=== PATIENT | female | born 1980 | race African-American/Black ===

== ENCOUNTER 2017-06-01 18:13 | Emergency (ER) | payer OTHER ==
[2017-06-01 18:34] VITALS: BP 150/81; PULSE 82; TEMP 98.6; BMI 39.9
[2017-06-01] MEDS ORDERED: KETOROLAC TROMETHAMINE 60 MG/2 ML VIAL IM ONE (20:19)
[2017-06-01] MEDS ORDERED: KETOROLAC TROMETHAMINE 60 MG/2 ML VIAL ONE (20:21)
--- NOTE | 2017-06-01 20:27 | PDOC ---
History of Present Illness - General Chief Complaint: Pain, Acute Stated Complaint: PAIN RT ARM Time Seen by Provider: 06/01/17 19:12 - History of Present Illness Initial Comments: 06/01/17 20:23 CHIEF COMPLAINT: right arm pain HISTORY OF PRESENT ILLNESS: 37 yo F with hx of osteoarthritis presents to [facility] with pain to right arm "after sleeping on it funny." No recent travel or sick contacts. PAST MEDICAL HISTORY: Denies past medical history FAMILY HISTORY: Denies SOCIAL HISTORY: Denies tobacco, alcohol, illicit drug use. SURGICAL HISTORY: Denies ALLERGIES: No known drug allergies REVIEW OF SYSTEMS General/Constitutional: Denies fever or chills. Denies weakness, weight change. HEENT: Denies change in vision. Denies ear pain or discharge. Denies sore throat. Cardiovascular: Denies chest pain or shortness of breath. Respiratory: Denies cough, wheezing, or hemoptysis. Gastrointestinal: Denies nausea, vomiting, diarrhea or constipation. Denies rectal bleeding. Genitourinary: Denies dysuria, frequency, or change in urination. Musculoskeletal: R arm pain. Denies neck or back pain. PHYSICAL EXAM General Appearance: Well-appearing, appropriately dressed. No apparent distress. HEENT: EOMI, PERRLA. No conjunctival pallor. No photophobia, scleral icterus. Respiratory/Chest: Lungs CTAB. Cardiovascular: RRR. S1, S2. Musculoskeletal/Extremities: Normal inspection. FROM of all extremities, normal capillary refill. No tenderness to extremities, pedal edema, swelling, erythema or deformity. Integumentary: Appropriate color, dry, warm. 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 Fully oriented, alert. Appropriate mood/affect. Motor strength 5/5. No appreciable EOM palsy, facial droop or sensory deficit. Past History - Past Medical History Allergies/Adverse Reactions: Allergies Allergy/AdvReac Type Severity Reaction Status Date / Time Penicillins Allergy Verified 06/01/17 18:18 sulfamethoxazole Allergy Verified 06/01/17 18:18 [From Bactrim] trimethoprim [From Bactrim] Allergy Verified 06/01/17 18:18 Home Medications: Ambulatory Orders Carvedilol [Coreg -] 12.5 mg PO BID 06/01/17 Furosemide [Lasix] 20 mg PO ASDIR 06/01/17 Ibuprofen 600 mg PO TID PRN #30 tablet 06/01/17 Levothyroxine [Synthroid -] 0 mg PO ASDIR 06/01/17 Lisinopril 0 mg PO ASDIR 06/01/17 Asthma: No Cancer: No Cardiac Disorders: No (cardio myopathy) Diabetes: No HTN: No Seizures: No Thyroid Disease: Yes (hypo) Other medical history: osteroarthritis - Surgical History Abdominal Surgery: Yes (UMBILICAL HERNIA REPAIR) - Reproductive History (#): 7 Para: 2 Therapeutic (s) & number: Yes (2) Spontaneous : 2 - Suicide/Smoking/Psychosocial Hx Smoking Status: Yes Smoking History: Never smoked Have you smoked in the past 12 months: Yes Number of Cigarettes Smoked Daily: 8 Information on smoking cessation initiated: No Hx Alcohol Use: No Drug/Substance Use Hx: No Substance Use Type: None Hx Substance Use Treatment: No *Physical Exam - Vital Signs Last Vital Signs Temp Pulse Resp BP Pulse Ox 98.6 F 82 19 150/81 99 06/01/17 18:16 06/01/17 18:16 06/01/17 18:16 06/01/17 18:16 06/01/17 18:16 Medical Decision Making - Medical Decision Making Exam unremarkable. X-rays negative. Pain control with NSAIDS. Follow up with ortho, PCP. *DC/Admit/Observation/Transfer Diagnosis at time of Disposition: Wrist pain, acute Qualifiers: Laterality: right Qualified Code(s): M25.531 - Pain in right wrist - Discharge Dispostion Disposition: HOME Condition at time of disposition: Stable Admit: No - Prescriptions Prescriptions: Ibuprofen 600 mg PO TID PRN #30 tablet PRN Reason: Pain - Referrals Referrals: Champ Cortes MD [Primary Care Provider] - - Patient Instructions Printed Discharge Instructions: DI for Wrist Pain Additional Instructions: Please take medications as prescribed. Follow up with your primary care doctor for further management of your osteoarthritis. You can also follow up with an orthopedist to get a possible MRI and/or physical therapy of your wrist. If you develop any loss of sensation to your fingers, decreased temperature or change in color to your fingers or hands, or any new or worsening symptoms, please return to the ER. - Post Discharge Activity
== END 2017-06-01 21:16 | disposition home or self-care (01) ==
LOC: JERFT 18:13
PROC: 3E0233Z Introduction of Anti-inflammatory into Muscle, Percutaneous Approach (ICD-10-PCS; principal; 2017-06-01)
DX: M25.531 Pain in right wrist (principal); E03.9 Hypothyroidism, unspecified; I42.9 Cardiomyopathy, unspecified
CPT/HCPCS: 73090-TC-RT; 73110-TC-RT; 73130-TC-RT; 96372; 99281-25

== ENCOUNTER 2017-07-27 09:10 | Observation (INO) | payer OTHER ==
--- NOTE | 2017-07-27 10:10 | PDOC ---
History of Present Illness - General Chief Complaint: Back Pain Stated Complaint: BACK PAIN Time Seen by Provider: 07/27/17 09:31 History Source: Patient Exam Limitations: No Limitations - History of Present Illness Initial Comments: This is a 37 YOF with h/o chronic back and neck pain d/t DJD and osteoarthritis , and HTN, who was BIBA for 06/06 constant low back pain radiating up to the thoracic back on both sides of the spine and down the back of both legs, worsened by bending/twisting/movement/repositioning, onset last night, and worsening since that time. It feels like a muscle spasm combined with sharp nerve pain and has caused her difficulty walking d/t the pain and also a feeling that her knees are buckling beneath her. She tried Rx diclofenac cream without relief this morning but no other medications. She has had chronic back pain exacerbations the same as this in the past but the most recent was more than 2 years ago for which she was seen by her PCP, had an MRI of the spine, and did several sessions of PT. Past History - Past Medical History Allergies/Adverse Reactions: Allergies Allergy/AdvReac Type Severity Reaction Status Date / Time Penicillins Allergy Verified 07/27/17 09:41 sulfamethoxazole Allergy Verified 07/27/17 09:41 [From Bactrim] trimethoprim [From Bactrim] Allergy Verified 07/27/17 09:41 Home Medications: Ambulatory Orders Carvedilol [Coreg -] 6.25 mg PO BID 06/01/17 Furosemide [Lasix] 40 mg PO ASDIR 06/01/17 Ibuprofen 600 mg PO TID PRN #30 tablet 06/01/17 Levothyroxine [Synthroid -] 52 mg PO DAILY 06/01/17 Lisinopril 5 mg PO DAILY 06/01/17 Asthma: No Cancer: No Cardiac Disorders: Yes (cardiomypothy) COPD: No Diabetes: No HTN: Yes Seizures: Yes (hypo) Thyroid Disease: No - Surgical History Abdominal Surgery: Yes (UMBILICAL HERNIA REPAIR) - Reproductive History (#): 7 Para: 2 Therapeutic (s) & number: Yes (2) Spontaneous : 2 - Suicide/Smoking/Psychosocial Hx Smoking Status: Yes Smoking History: Current every day smoker Have you smoked in the past 12 months: Yes Number of Cigarettes Smoked Daily: 3 Information on smoking cessation initiated: No Hx Alcohol Use: No Drug/Substance Use Hx: No Substance Use Type: None Hx Substance Use Treatment: No Review of Systems - Review of Systems Constitutional: No: Chills, Fever, Unexplained wgt Loss HEENTM: No: Nose Congestion, Throat Pain Respiratory: No: Cough, Shortness of Breath Cardiac (ROS): No: Chest Pain, Palpitations ABD/GI: No: Constipated, Diarrhea, Nausea, Vomiting : No: Burning, Dysuria Musculoskeletal: Yes: Back Pain, Neck Pain (chronic and at baseline currently) Integumentary: No: Bruising, Rash Neurological: Yes: Weakness (legs buckling). No: Headache, Numbness, Tingling, Dizziness Endocrine: No: Unexplained Weight Gain, Unexplained Weight Loss *Physical Exam - Vital Signs Last Vital Signs Temp Pulse Resp BP Pulse Ox 98.2 F 78 22 124/67 100 07/27/17 09:15 07/27/17 09:15 07/27/17 09:15 07/27/17 09:15 07/27/17 09:15 - Physical Exam General Appearance: Yes: Nourished, Appropriately Dressed, Moderate Distress, Obese, Other (sitting in hospital bed with head of bed up to 90 degrees and coat bunched up behind her L-spine, appears very uncomfortable, stabilizing her trunk by holding both arm rails, answering questions appropriatley) HEENT: positive: EOMI, XOCHITL, Normal Voice, Hearing Grossly Normal. negative: Scleral Icterus (R), Scleral Icterus (L), Nasal Congestion Neck: positive: Trachea midline, Supple. negative: Tender, Rigid Respiratory/Chest: positive: Lungs Clear, Normal Breath Sounds. negative: Respiratory Distress, Crackles, Rhonchi, Stridor, Wheezing Cardiovascular: positive: Regular Rhythm, Regular Rate. negative: Murmur Gastrointestinal/Abdominal: positive: Normal Bowel Sounds, Soft. negative: Tender, Organomegaly, Pulsatile Mass, Guarding Musculoskeletal: positive: Normal Inspection, Vertebral Tenderness (diffuse lumbar and superior sacral midline ttp with paraspinous ttp from t6-12, no thoracic or cervical ttp of midline). negative: Decreased Range of Motion Extremity: positive: Normal Capillary Refill, Normal Inspection, Normal Range of Motion. negative: Tender, Cyanosis Integumentary: positive: Normal Color, Dry, Warm. 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 Here in the ED she has diffuse lumbar paraspinous and midline ttp as well as bilateral paraspinous thoracic ttp T6-T12. She does appear very uncomfortable, but no stepoff, deformity, or any other exam abnormalities. Ordered is X-ray LS spine, sxs control with 15 mg toradol IV, 1 GM Ofirmev. 07/27/17 15:06 Xrays read as nothing acute. Patient with continued pain only slightly relieved by Ofirmev and Toradol. Ordered is 5 mg oxycodone, 5 mg flexeril, a second 15 mg Toradol 07/27/17 15:19 [facility] to notify them of possible short stay admission for intractable pain. 07/27/17 17:00 Patient's pain remains intractable with above doses of medications (5 doses total of 4 medications). She is unable to walk without assistance to the bathroom. [facility] has been paged to discuss admission to med/surg obs for intractable pain. *DC/Admit/Observation/Transfer Diagnosis at time of Disposition: Acute exacerbation of chronic low back pain - Discharge Dispostion Admit: Yes - Referrals - Patient Instructions - Post Discharge Activity
[2017-07-27] MEDS ORDERED: ACETAMINOPHEN 1000 MG/100 ML VIAL (NON FORMULARY) IVPB ONE (10:23)
--- NOTE | 2017-07-27 10:29 | PDOC ---
Attending Attestation - Resident Resident Name: Lillian Alonso - ED Attending Attestation I have performed the following: I have examined & evaluated the patient, The case was reviewed & discussed with the resident, I agree w/resident's findings & plan, Exceptions are as noted - HPI HPI: 07/27/17 10:13 37 YOF with h/o chronic back and neck pain d/t DJD and osteoarthritis, hypothyroidism, and HTN p/w acute on chronic lumbar back pain radiating to thoracic spine and down b/l legs. Pain is 8/10 at rest, 10/10 with twisting or bending. Pt states she feels like her muscles are spasming. Took diclofenac gel. Denies trauma or heavy lifting. Reports similar episode of pain 1 year ago without trauma or strenuous activity. Pt does not see pain management. Has done physical therapy for the pain in the past but reports not recently. Denies urinary retention or incontinence. Denies numbness in LE. Reports feeling weak in her LE but reports she is often in too much pain to move them. Denies fevers, chills, CP, SOB, N/V/D. - Physicial Exam PE: 07/27/17 10:29 GENERAL: Awake, alert, and fully oriented, in no acute distress HEAD: No signs of trauma EYES: PERRLA, EOMI, sclera anicteric, conjunctiva clear ENT: Auricles normal inspection, hearing grossly normal, nares patent, oropharynx clear without exudates. Moist mucosa NECK: Normal ROM, supple, no lymphadenopathy, JVD, or masses LUNGS: Breath sounds equal, clear to auscultation bilaterally. No wheezes, and no crackles HEART: Regular rate and rhythm, normal S1 and S2, no murmurs, rubs or gallops ABDOMEN: Soft, nontender, normoactive bowel sounds. No guarding, no rebound. No masses EXTREMITIES: Normal range of motion, no edema. No clubbing or cyanosis. No cords, erythema, or tenderness BACK: midline lumbar ttp, paraspinal ttp throughout thoracic and lumbar spine. NEUROLOGICAL: Normal speech, cranial nerves intact, negative pronator drift, 5/ 5 strength in all 4 extremities, normal sensation to light touch in all 4 extremities, normal cerebellar exam, normal gait, normal reflexes and tone SKIN: Warm, Dry, normal turgor, no rashes or lesions noted. - Medical Decision Making 11/30/17 10:30 37-year-old female presents with acute on chronic back pain. Vitals within normal limits. Patient appears uncomfortable however there are no red flags including no lower extremity weakness on exam, no sensory deficits, normal tone and patient does not have any urinary or stool incontinence or retention. Plan: -UPT -pain control -XR for bony fx (although low suspicion in absence of trauma) -reassess 07/27/17 17:57 Despite multiple rounds of pain medications and muscle relaxer, the patient continues to have difficulty standing or ambulating. The patient will be admitted to [facility] for further management.
[2017-07-27] MEDS ORDERED: ACETAMINOPHEN INJECTION 100 ML IVPB ONE (10:35)
[2017-07-27] MEDS ORDERED: KETOROLAC TROMETHAMINE 30 MG/1 ML VIAL IVPUSH ONE (11:28)
[2017-07-27] MEDS ORDERED: diazePAM 5 MG TABLET PO ONE (11:32)
[2017-07-27] MEDS ORDERED: KETOROLAC TROMETHAMINE 15 MG/ML VIAL ONE ×2 (11:34→15:27)
[2017-07-27] MEDS ORDERED: diazePAM 5 MG TABLET ONE (11:40)
[2017-07-27] MEDS ORDERED: oxyCODONE HCL 5 MG TABLET PO ONE (15:07)
[2017-07-27] MEDS ORDERED: KETOROLAC TROMETHAMINE 30 MG/1 ML VIAL IM ONE (15:07)
[2017-07-27] MEDS ORDERED: CYCLOBENZAPRINE HCL 10 MG TABLET (FP) PO ONE (15:08)
[2017-07-27] MEDS ORDERED: oxyCODONE HCL 5 MG TABLET ONE (15:26)
[2017-07-27] MEDS ORDERED: CYCLOBENZAPRINE HCL 10 MG TABLET (FP) ONE (15:27)
--- NOTE | 2017-07-27 17:20 | HP ---
CHIEF COMPLAINT: Low back pain PCP: Champ Cortes Ortho: Dr. Rush Cardiology: Dr. Lott HISTORY OF PRESENT ILLNESS: 37 year-old woman with a PMH significant for HTN, post cardiomyopathy, and chronic neck, back and joint pain, presents with complaint of acute worsening of low back pain x 1 day. Patient was cooking in her kitchen when she felt a spasm-type pain in her lower back which persists. The pain radiates in ever direction and is exacerbated by movement. She was seen by Dr. Rush a month ago for a similar complaint and he prescribed a course of physical therapy. Allergies Penicillins Allergy (Verified 07/27/17 09:41) sulfamethoxazole [From Bactrim] Allergy (Verified 07/27/17 09:41) trimethoprim [From Bactrim] Allergy (Verified 07/27/17 09:41) HOME MEDICATIONS: Home Medications Medication Instructions Recorded Carvedilol [Coreg -] 6.25 mg PO BID 06/01/17 Furosemide [Lasix] 40 mg PO ASDIR 06/01/17 Ibuprofen 600 mg PO TID PRN #30 tablet 06/01/17 Levothyroxine [Synthroid -] 52 mg PO DAILY 06/01/17 Lisinopril 5 mg PO DAILY 06/01/17 REVIEW OF SYSTEMS CONSTITUTIONAL: Absent: fever, chills, diaphoresis, generalized weakness, malaise, loss of appetite, weight change HEENT: Absent: rhinorrhea, nasal congestion, throat pain, throat swelling, difficulty swallowing, mouth swelling, ear pain, eye pain, visual changes CARDIOVASCULAR: Absent: chest pain, syncope, palpitations, irregular heart rate, lightheadedness , peripheral edema RESPIRATORY: Absent: cough, shortness of breath, dyspnea with exertion, orthopnea, wheezing, stridor, hemoptysis GASTROINTESTINAL: Absent: abdominal pain, abdominal distension, nausea, vomiting, diarrhea, constipation, melena, hematochezia GENITOURINARY: Absent: dysuria, frequency, urgency, hesitancy, hematuria, flank pain, genital pain MUSCULOSKELETAL: Present: Back pain Absent: myalgia, arthralgia, joint swelling, back pain, neck pain SKIN: Absent: rash, itching, pallor HEMATOLOGIC/IMMUNOLOGIC: Absent: easy bleeding, easy bruising, lymphadenopathy, frequent infections ENDOCRINE: Absent: unexplained weight gain, unexplained weight loss, heat intolerance, cold intolerance NEUROLOGIC: Absent: headache, focal weakness or paresthesias, dizziness, unsteady gait, seizure, mental status changes, bladder or bowel incontinence PSYCHIATRIC: Absent: anxiety, depression, suicidal or homicidal ideation, hallucinations. PHYSICAL EXAMINATION Vital Signs - 24 hr 07/27/17 07/27/17 09:15 14:33 Temperature 98.2 F Pulse Rate 78 Pulse Rate [ 81 Apical] Respiratory 22 18 Rate Blood Pressure 124/67 Blood Pressure 130/74 [Right Arm] O2 Sat by Pulse 100 99 Oximetry (%) GENERAL: Awake, alert, and fully oriented, in no acute distress. HEAD: Normal with no signs of trauma. EYES: Pupils equal, round and reactive to light, extraocular movements intact, sclera anicteric, conjunctiva clear. No lid lag. EARS, NOSE, THROAT: Ears normal, nares patent, oropharynx clear without exudates. Moist mucous membranes. NECK: Normal range of motion, supple without lymphadenopathy, JVD, or masses. LUNGS: Breath sounds equal, clear to auscultation bilaterally. No wheezes, and no crackles. No accessory muscle use. HEART: Regular rate and rhythm, normal S1 and S2 without murmur, rub or gallop. ABDOMEN: Soft, nontender, not distended, normoactive bowel sounds, no guarding, no rebound, no masses. No hepatomegaly or splenomegaly. MUSCULOSKELETAL: Normal range of motion at all joints. No bony deformities or tenderness. No CVA tenderness. UPPER EXTREMITIES: 2+ pulses, warm, well-perfused. No cyanosis. No clubbing. No peripheral edema. LOWER EXTREMITIES: 2+ pulses, warm, well-perfused. No calf tenderness. No peripheral edema. NEUROLOGICAL: Cranial nerves II-XII intact. Normal speech. Unable to perform SLR due to pain. 5/5 motor/sensory all extremities. Laboratory Results - last 24 hr 07/27/17 10:30 Serum , Qual Negative ASSESSMENT/PLAN: 37 year-old woman with a PMH significant for HTN, post cardiomyopathy, and chronic neck, back and joint pain, presents with complaint of acute worsening of low back pain x 1 day. Back pain --MRI LSS ordered Hypertension --continue carvedilol Post cardiomyopathy --no acute issues Visit type - Emergency Visit Emergency Visit: Yes ED Registration Date: 07/27/17 Care time: The patient presented to the Emergency Department on the above date and was hospitalized for further evaluation of their emergent condition. - New Patient This patient is new to me today: Yes Date on this admission: 07/29/17 - Critical Care Critical Care patient: No
[2017-07-27] MEDS ORDERED: CYCLOBENZAPRINE HCL 5 MG TABLET PO SCH (17:30)
[2017-07-27 20:52] VITALS: BMI 37.6
[2017-07-27] MEDS: CARVEDILOL 12.5 MG TABLET (FP) PO SCH (23:09)
[2017-07-27] MEDS: FUROSEMIDE 20 MG TABLET (FP) PO SCH ×2 (23:09→23:12)
[2017-07-27] MEDS: DICLOFENAC SODIUM 75 MG TABLET.DR PO SCH (23:09)
[2017-07-28] MEDS ORDERED: LEVOTHYROXINE NA 25 MCG TABLET (FP) PO SCH ×2 (07:00→10:00)
[2017-07-28] MEDS ORDERED: PT OWN MED DRAWER 7, Y5N ONE (08:59)
[2017-07-28] MEDS: CARVEDILOL 12.5 MG TABLET (FP) PO SCH (09:02)
[2017-07-28] MEDS: DICLOFENAC SODIUM 75 MG TABLET.DR PO SCH (09:03)
[2017-07-28] MEDS ORDERED: LISINOPRIL 5 MG TABLET (FP) PO SCH (10:00)
--- NOTE | 2017-07-28 12:49 | DS ---
Physical Exam: HOSPITAL COURSE: Date of Admission:07/27/17 Date of AMA: 07/28/17 Minutes to complete discharge: 10 Discharge Summary Reason For Visit: BACK PAIN - Instructions Referrals: Champ Cortes MD [Primary Care Provider] - Disposition: AGAINST MEDICAL ADVICE - Home Medications Comprehensive Discharge Medication List: Ambulatory Orders Carvedilol [Coreg -] 6.25 mg PO BID 06/01/17 Furosemide [Lasix] 40 mg PO ASDIR 06/01/17 Ibuprofen 600 mg PO TID PRN #30 tablet 06/01/17 Levothyroxine [Synthroid -] 52 mg PO DAILY 06/01/17 Lisinopril 5 mg PO DAILY 06/01/17 This patient is new to me today: No Emergency Visit: Yes ED Registration Date: 07/27/17 Care time: The patient presented to the Emergency Department on the above date and was hospitalized for further evaluation of their emergent condition. Critical Care patient: No - Discharge Referral Referred to [facility] Med P.C.: No
[2017-07-28 13:25] VITALS: BP 105/58; PULSE 74; TEMP 98
== END 2017-07-28 12:50 | disposition left against medical advice (07) ==
LOC: JER 09:10 → JERBED 18:12 → J6S 20:28
PROVIDERS: ADMIT Internal Medicine; ATTEND Internal Medicine
PROC: 3E033NZ Introduction of Analgesics, Hypnotics, Sedatives into Peripheral Vein, Percutaneous Approach (ICD-10-PCS; principal; 2017-07-27)
PROC: 3E0333Z Introduction of Anti-inflammatory into Peripheral Vein, Percutaneous Approach (ICD-10-PCS; 2017-07-27)
PROC: 3E0233Z Introduction of Anti-inflammatory into Muscle, Percutaneous Approach (ICD-10-PCS; 2017-07-27)
DX: M54.5 Low back pain (principal); M54.6 Pain in thoracic spine; I10 Essential (primary) hypertension; E03.9 Hypothyroidism, unspecified; F17.210 Nicotine dependence, cigarettes, uncomplicated
CPT/HCPCS: 36415; 72070-TC; 72100-TC; 84703; 96372; 96374; 96375; 99285-25; G0378

== ENCOUNTER 2017-08-20 13:44 | Emergency (ER) | payer OTHER ==
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
[2017-08-20] MEDS ORDERED: KETOROLAC TROMETHAMINE 60 MG/2 ML VIAL IM ONE (14:16)
[2017-08-20] MEDS ORDERED: KETOROLAC TROMETHAMINE 30 MG/1 ML VIAL ONE (14:20)
[2017-08-20 14:31] VITALS: TEMP 98.3; BMI 37.0
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
[2017-08-20 17:00] VITALS: BP 132/82; PULSE 88
== END 2017-08-20 17:00 | disposition home or self-care (01) ==
LOC: JER 13:44
PROC: 3E0233Z Introduction of Anti-inflammatory into Muscle, Percutaneous Approach (ICD-10-PCS; principal; 2017-08-20)
DX: S49.82XA Other specified injuries of left shoulder and upper arm, initial encounter (principal); S39.82XA Other specified injuries of lower back, initial encounter; V03.10XA Pedestrian on foot injured in collision with car, pick-up truck or van in traffic accident, initial encounter; Y92.414 Local residential or business street as the place of occurrence of the external cause; Y93.89 Activity, other specified; Y99.8 Other external cause status; I10 Essential (primary) hypertension; E03.9 Hypothyroidism, unspecified
CPT/HCPCS: 72100-TC; 73030-TC-LT; 99282-25

== ENCOUNTER 2020-09-16 10:39 | Emergency (ER) | payer OTHER ==
[2020-09-16 11:22] VITALS: BP 139/71; PULSE 77; BMI 44.6
[2020-09-16 12:39] LABS: PH,URINE 5.5 (5.0-8.0); URINE APPEARANCE CLEAR; URINE BILIRUBIN NEGATIVE (NEGATIVE); URINE COLOR YELLOW; URINE GLUCOSE (UA) NEGATIVE (NEGATIVE); URINE KETONE NEGATIVE (NEGATIVE); URINE LEUK ESTERASE NEGATIVE (NEGATIVE); URINE NITRITE NEGATIVE (NEGATIVE); URINE PROTEIN NEGATIVE (NEGATIVE); URINE UROBILINOGEN 0.2 mg/dL (0.2-1.0)
[2020-09-16 12:42] LABS: HCG,QUALITATIVE URINE Negative
== END 2020-09-16 13:05 | disposition home or self-care (01) ==
LOC: JER 10:39
DX: M54.6 Pain in thoracic spine (principal)
CPT/HCPCS: 71046-TC-FY; 81003; 84703; 87086; 99284-25

== ENCOUNTER 2021-05-09 19:34 | Emergency (ER) | payer OTHER ==
[2021-05-09 19:43] VITALS: BP 136/90; PULSE 94; TEMP 98.3; BMI 37.4
[2021-05-09] MEDS ORDERED: LIDOCAINE 5% TOPICAL PATCH TP ONE (19:56)
[2021-05-09] MEDS ORDERED: ACETAMINOPHEN 500 MG TABLET (FP) PO ONE (19:56)
[2021-05-09] MEDS ORDERED: ACETAMINOPHEN 325 MG TABLET (FP) ONE (20:00)
[2021-05-09] MEDS ORDERED: LIDOCAINE 5% TOPICAL PATCH ONE (20:00)
[2021-05-09] MEDS ORDERED: METHOCARBAMOL 500 MG TABLET PO ONE (20:05)
[2021-05-09] MEDS ORDERED: METHOCARBAMOL 500 MG TABLET ONE (20:14)
[2021-05-09] MEDS ORDERED: DIPHTH,PERTUSS(ACELL),TET 0.5 ML DISP.SYRIN IM ONE ×2 (21:59→22:36)
[2021-05-09] MEDS ORDERED: BACITRACIN 15 GM TUBE TOPICAL OINTMENT TP ONE (22:03)
[2021-05-10] MEDS ORDERED: LIDOCAINE PATCH REMOVAL MC ONE (09:00)
== END 2021-05-10 00:44 | disposition home or self-care (01) ==
LOC: JER 19:34
PROC: 3E0234Z Introduction of Serum, Toxoid and Vaccine into Muscle, Percutaneous Approach (ICD-10-PCS; principal; 2021-05-09)
DX: R51.9 Headache, unspecified (principal); M54.5 Low back pain; M25.511 Pain in right shoulder; T14.90XA Injury, unspecified, initial encounter; W19.XXXA Unspecified fall, initial encounter
CPT/HCPCS: 70450-TC; 72125-TC; 72131-TC; 84703; 90471; 90715; 99285-25

== ENCOUNTER 2021-11-30 13:53 | Emergency (ER) | payer OTHER ==
[2021-11-30 14:29] VITALS: BP 152/74; PULSE 88; TEMP 98; BMI 43.2
[2021-11-30] MEDS ORDERED: KETOROLAC TROMETHAMINE 30 MG/1 ML VIAL IM ONE (16:52)
[2021-11-30] MEDS ORDERED: KETOROLAC TROMETHAMINE 30 MG/1 ML VIAL ONE (17:24)
== END 2021-11-30 18:09 | disposition home or self-care (01) ==
LOC: JERFT 13:53
PROC: 3E0233Z Introduction of Anti-inflammatory into Muscle, Percutaneous Approach (ICD-10-PCS; principal; 2021-11-30)
DX: S86.912A Strain of unspecified muscle(s) and tendon(s) at lower leg level, left leg, initial encounter (principal); S93.402A Sprain of unspecified ligament of left ankle, initial encounter; X50.0XXA Overexertion from strenuous movement or load, initial encounter
CPT/HCPCS: 73562-TC-LT-FY; 73610-TC-LT-FY; 99284-25